=== PATIENT | male | born 1975 | race Caucasian/White ===

== ENCOUNTER 2019-01-16 22:38 | Inpatient (IN) ==
[2019-01-16] MEDS ORDERED: 0.9 % Sodium Chloride 1,000 ML IVC ONE (22:46)
[2019-01-16] MEDS ORDERED: Hyoscyamine SL 0.125 MG TAB.SUBL SL STA (22:46)
[2019-01-16] MEDS ORDERED: *HR* LORazepam 1 MG TABLET PO ONE (23:12)
[2019-01-16 23:26] LABS: Basophils % 0.2 %; Eosinophils # 0.2 K/mcL (0.0-0.6); Eosinophils % 1.1 %; Hematocrit 42.7 % (37.5-50.1); Hemoglobin 14.3 g/dL (12.9-16.9); Immature Granulocytes % 0.4 % (0-4); Lymphocytes % 13.2 %; Mean Corpuscular HGB Conc 33.5 g/dL (31.6-35.5); Mean Corpuscular Hemoglobin 31.4 pg (28.0-33.3); Mean Corpuscular Volume 93.6 fL (83.0-100.0); Mean Platelet Volume 9.7 fL (9.4-12.4); Monocytes # 1.1 K/mcL (0.0-1.3); Monocytes % 7.5 %; Neutrophils # 11.4 K/mcL (1.6-8.9); Platelet Count 209 K/mcL (140-400); Red Blood Count 4.56 M/mcL (4.19-5.50); Segmented Neutrophils % 77.6 %
--- NOTE | 2019-01-16 23:48 | Emergency Department Note ---
Disposition Clinical Impression: Elevated troponin Acute pulmonary embolism with acute cor pulmonale Qualifiers: Pulmonary embolism type: unspecified Qualified Code(s): I26.09 - Disposition: Admitted As Inpatient Condition: Fair Time of Disposition: 04:00 General Adult HPI - General Chief complaint: ED Chest Pain Stated complaint: Chest Pain Time Seen by Provider: 01/16/19 22:45 Source: EMS Mode of arrival: ambulatory Limitations: no limitations Nursing Notes Reviewed: Yes Vital Signs Reviewed: Yes - History of Present Illness HPI Narrative: 43-year-old MRDD patient presents to the emergency department complaining of abdominal and chest pain. They said it started earlier today this said that he just says he hurts he has not vomited has not had any fevers he has no shortness of breath. Patient is complaining of generalized abdominal pain generalized chest pain. It is difficult to get further history from the patient due to his MRDD. They say there is been no fevers no changes in urination no changes in bowel movements according to staff. Otherwise has no other complaints at this time. Pain Scale: 0 - Related Data Home Medications Medication Instructions Recorded Confirmed Atorvastatin Calcium [Lipitor] 20 mg PO HS 01/17/19 01/17/19 Benztropine [Cogentin] 0.5 mg PO BID 01/17/19 01/17/19 Buspirone HCl [Buspar] 15 mg PO TID 01/17/19 01/17/19 Cholecalciferol (D-3) [Vitamin D] 2,000 unit PO DAILY 01/17/19 01/17/19 Dextran 70/Hypromellose 1 drop BOTH EYES BID 01/17/19 01/17/19 [Artificial Tears] Docusate [Colace] 200 mg PO BID 01/17/19 01/17/19 Escitalopram [Lexapro] 20 mg PO DAILY 01/17/19 01/17/19 LORazepam [Ativan] 0.5 mg PO TID 01/17/19 01/17/19 Lisinopril [Zestril] 10 mg PO DAILY 01/17/19 01/17/19 Loratadine [Allergy Relief] 10 mg PO DAILY 01/17/19 01/17/19 Lurasidone HCl [Latuda] 80 mg PO DAILY 01/17/19 01/17/19 Montelukast [Singulair] 10 mg PO DAILY 01/17/19 01/17/19 Multivit,Th Iron,Other Min 1 each PO DAILY 01/17/19 01/17/19 [Therems-M] Naltrexone HCl 50 mg PO BID 01/17/19 01/17/19 Oxybutynin Chloride [Ditropan Xl] 10 mg PO DAILY 01/17/19 01/17/19 Topiramate [Topamax] 100 mg PO BID 01/17/19 01/17/19 carBAMazepine [Tegretol] 200 mg PO Q8HR 01/17/19 01/17/19 Previous Rx's Medication Instructions Recorded Heparin 2,000 unit IVP Q6H PRN vial 01/17/19 Heparin 4,000 unit IVP Q6HR PRN vial 01/17/19 Allergies Allergy/AdvReac Type Severity Reaction Status Date / Time haloperidol Allergy Rash Verified 01/30/17 19:42 Review of Systems: As Per HPI Limitations: ROS unobtainable due to patients medical condition Past Medical History - Past Medical History Attestation: Yes The following information was validated with the patient. Source: unable to obtain Medical history: Reports: hyperlipidemia Psychiatric history: Reports: other - Social History Smoking Status: Never smoker Smokeless Tobacco Status: No Alcohol use: Reports: none Drug use: Reports: none Physical Exam - General Limitations: no limitations General appearance: alert - Head Head exam: atraumatic, normocephalic, normal inspection - Eye Eye exam: Present: normal appearance, PERRL, EOMI - ENT ENT exam: normal exam, normal oropharynx, mucous membranes moist - Neck Neck exam: Present: normal inspection, full ROM, trachea midline - Chest Chest inspection: Present: normal inspection, symmetric chest wall rise - Respiratory Respiratory exam: Present: normal lung sounds bilaterally - Cardiovascular Cardiovascular exam: Present: regular rate, normal rhythm, normal heart sounds - Abdominal Exam Abdominal exam: Present: soft, tenderness. Absent: distention, guarding, rebound, rigidity Abdominal tenderness: Present: diffuse, mild - Extremities Exam Extremities exam: Present: normal inspection, full ROM. Absent: tenderness, pedal edema - Back Exam Back exam: Present: normal inspection, full ROM. Absent: tenderness - Neurological Exam Neurological exam: Present: alert - Skin Skin exam: Present: warm, dry, intact, normal color Course Course Narrative: We will get basic labs including CBC BMP troponin lipase and lactate. We will also get urinalysis. We will get chest x-ray EKG as well as CT abdomen and pelvis without contrast to look for any pathology. Patient given IV fluids and analgesia. Disposition pending results - Reevaluation(s) Reevaluation #1: Patient's troponin came back as 0.38. I did send pictures of the patient's EKG to the on-call salesperson household appliances Dr. Day. He reviewed on and recommended us to further evaluation this time and to trend troponins every 2-3 hours. Said patient did not meet STEMI criteria at this time. We did add on a CT angiogram of the chest rule out pulmonary embolism. Aspirin is given. Time: 01:08 Reevaluation #2: Repeat troponin ordered. We will start patient on low-dose heparin CT of the chest is still pending as well as the abdomen. Time: 01:43 Vital Signs Temperature 97.9 F 01/16/19 22:43 Pulse Rate 113 01/16/19 22:43 Respiratory Rate 20 01/16/19 22:43 Blood Pressure 139/92 01/16/19 22:43 O2 Sat by Pulse Oximetry 94 01/16/19 22:43 Temperature 97.9 F 01/16/19 22:43 Pulse Rate 93 01/17/19 05:40 Respiratory Rate 17 01/17/19 05:40 Blood Pressure 118/84 01/17/19 05:40 O2 Sat by Pulse Oximetry 94 01/17/19 05:40 Oxygen Delivery Oxygen Delivery Room Air Medical Decision Making - MDM Narrative Medical decision making narrative: 43-year-old male history of MRDD presented to the emergency department complaining of chest and abdominal pain. He was also short of breath. He was hypoxic at 92%. It is difficult to get a full history from the patient due to the MRDD. Due to this we did a broad workup patient did come back with an elevated troponin of 0.36. He did have mild leukocytosis. He had no acute EKG changes. With the elevation in troponin we will there is some other source but decided to give patient aspirin as well as start him on low-dose heparin. We started him on a low-dose heparin we sent him over to CAT scan be a CT angiogram of the chest. This came back with bilateral pulmonary embolisms with right heart strain there is no sign of ischemia. Or infarcts. He also had a CT of the abdomen and pelvis had no acute findings as well. Once we found out patient had a pulmonary embolism I changes patient's heparin dose to be full dose so he received a full bolus and then was started on the drip rather than low-dose ACS protocol. I did speak with cardiology who recommended looking further into the PE and he believes the troponin is secondary to the right heart strain. Patient was stable during his entire time there is no change in vital signs no hypotension he was mildly hypoxic at 92% but never got below 90%. I admitted the patient to the hospitalist service. I spoke with Dr. Maria due to met the patient to their service. Patient was admitted in stable condition. Chest X-Ray 01/16/19 22:45 IMPRESSION: Pulmonary vascular congestion. Correlate with clinical evidence of pulmonary edema. New prominence of the right hilum. Though that could be secondary to pulmonary arterial enlargement in the setting of pulmonary hypertension, a hilar mass remains in the differential. Consequently, further evaluation with chest CT is recommended, preferably with intravenous contrast. D/ / Vince Huber MD / Vince Huber MD Interpreting Provider: Vince Huber MD Abdomen/Pelvis CT 01/17/19 00:05 IMPRESSION: Motion limited. No acute intra-abdominal abnormality D/ / Brandon Rice MD / Brandon Rice MD Interpreting Provider: Brandon Rice MD Chest CTA 01/17/19 00:20 IMPRESSION: Motion artifacts. Acute pulmonary emboli in the distal aspect of the bilateral main pulmonary arteries extending into multiple bilateral segmental and subsegmental pulmonary arteries, with heavy embolic load and likely right heart strain. No definite pulmonary infarction. Critical results were reported to Dr. Atkinson at 3 a.m. on January 17, 2019 D/ / Sumit Gimenez MD / Sumit Gimenez MD Interpreting Provider: Sumit Gimenez MD - Medical Records Medical records reviewed: Yes I reviewed the patient's medical records. - Lab Data Lab results reviewed: Yes I reviewed the patient's lab results. Result diagrams: 01/17/19 02:12 01/16/19 23:15 Lab Results 01/16/19 01/16/19 01/16/19 Range/Units 23:15 23:15 23:15 WBC 14.8 H (4.3-11.1) K/mcL RBC 4.56 (4.19-5.50) M/mcL Hgb 14.3 (12.9-16.9) g/dL Hct 42.7 (37.5-50.1) % MCV 93.6 (83.0-100.0) fL MCH 31.4 (28.0-33.3) pg MCHC 33.5 (31.6-35.5) g/dL RDW 13.0 (11.5-14.5) % Plt Count 209 (140-400) K/mcL MPV 9.7 (9.4-12.4) fL Immature Gran % 0.4 (0-4) % Seg Neutrophils % 77.6 % Lymphocytes % 13.2 % Monocytes % 7.5 % Eosinophils % 1.1 % Basophils % 0.2 % Neutrophils # 11.4 H (1.6-8.9) K/mcL Lymphocytes # 2.0 (0.6-4.6) K/mcL Monocytes # 1.1 (0.0-1.3) K/mcL Eosinophils # 0.2 (0.0-0.6) K/mcL Basophils # 0.0 (0.0-0.2) K/mcL PT (9.4-12.1) Seconds INR Heparin Anti-Xa, Unfract (0.30-0.70) IU/mL Sodium 135 L (136-145) mEq/L Potassium 4.4 (3.5-5.1) mEq/L Chloride 106 (98-107) mEq/L Carbon Dioxide 24 (23-29) mEq/L BUN 13 (6-20) mg/dL Creatinine 0.68 L (0.70-1.30) mg/dL Est GFR ( Amer) > 60 (> 60) Est GFR (Non-Af Amer) > 60 (> 60) BUN/Creatinine Ratio 19 (6-26) Glucose 144 H (70-105) mg/dL Calculated Osmolality 283 (280-300) Lactic Acid 1.4 (0.5-2.2) mmol/L Calcium 9.2 (8.6-10.3) mg/dL Total Bilirubin 0.3 (0.3-1.0) mg/dL AST 23 (13-39) Units/L ALT 13 (7-52) Units/L Alkaline Phosphatase 111 H (34-104) Units/L Troponin I 0.38 H* (< 0.04) ng/mL Serum Total Protein 7.7 (6.4-8.9) g/dL Albumin 3.9 (3.5-5.7) g/dL Globulin 3.8 H (2.4-3.5) g/dL Albumin/Globulin Ratio 1.0 L (1.1-2.2) Lipase 21 (11-82) Units/L Urine Color (Yellow) Urine Clarity (Clear) Urine pH (5.0-8.0) pH Units Ur Specific Addison (1.010-1.025) Urine Protein (Neg-Trace) mg/dL Urine Glucose (UA) (Normal) mg/dL Urine Ketones (Negative) mg/dL Urine Blood (Negative) Urine Nitrite (Negative) Urine Bilirubin (Negative) Urine Urobilinogen (Normal) mg/dL Ur Leukocyte Esterase (Negative) Ur Culture Indicated? (NO) 01/17/19 01/17/19 01/17/19 Range/Units 01:46 02:12 02:12 WBC 13.0 H (4.3-11.1) K/mcL RBC 4.18 L (4.19-5.50) M/mcL Hgb 13.2 (12.9-16.9) g/dL Hct 39.3 (37.5-50.1) % MCV 94.0 (83.0-100.0) fL MCH 31.6 (28.0-33.3) pg MCHC 33.6 (31.6-35.5) g/dL RDW 13.2 (11.5-14.5) % Plt Count 208 (140-400) K/mcL MPV 10.3 (9.4-12.4) fL Immature Gran % (0-4) % Seg Neutrophils % % Lymphocytes % % Monocytes % % Eosinophils % % Basophils % % Neutrophils # (1.6-8.9) K/mcL Lymphocytes # (0.6-4.6) K/mcL Monocytes # (0.0-1.3) K/mcL Eosinophils # (0.0-0.6) K/mcL Basophils # (0.0-0.2) K/mcL PT (9.4-12.1) Seconds INR Heparin Anti-Xa, Unfract (0.30-0.70) IU/mL Sodium (136-145) mEq/L Potassium (3.5-5.1) mEq/L Chloride (98-107) mEq/L Carbon Dioxide (23-29) mEq/L BUN (6-20) mg/dL Creatinine (0.70-1.30) mg/dL Est GFR ( Amer) (> 60) Est GFR (Non-Af Amer) (> 60) BUN/Creatinine Ratio (6-26) Glucose (70-105) mg/dL Calculated Osmolality (280-300) Lactic Acid (0.5-2.2) mmol/L Calcium (8.6-10.3) mg/dL Total Bilirubin (0.3-1.0) mg/dL AST (13-39) Units/L ALT (7-52) Units/L Alkaline Phosphatase (34-104) Units/L Troponin I 0.30 H* (< 0.04) ng/mL Serum Total Protein (6.4-8.9) g/dL Albumin (3.5-5.7) g/dL Globulin (2.4-3.5) g/dL Albumin/Globulin Ratio (1.1-2.2) Lipase (11-82) Units/L Urine Color Yellow (Yellow) Urine Clarity Clear (Clear) Urine pH 8.0 (5.0-8.0) pH Units Ur Specific Addison 1.015 (1.010-1.025) Urine Protein Negative (Neg-Trace) mg/dL Urine Glucose (UA) Normal (Normal) mg/dL Urine Ketones Negative (Negative) mg/dL Urine Blood Negative (Negative) Urine Nitrite Negative (Negative) Urine Bilirubin Negative (Negative) Urine Urobilinogen Normal (Normal) mg/dL Ur Leukocyte Esterase Negative (Negative) Ur Culture Indicated? NO (NO) 01/17/19 Range/Units 02:12 WBC (4.3-11.1) K/mcL RBC (4.19-5.50) M/mcL Hgb (12.9-16.9) g/dL Hct (37.5-50.1) % MCV (83.0-100.0) fL MCH (28.0-33.3) pg MCHC (31.6-35.5) g/dL RDW (11.5-14.5) % Plt Count (140-400) K/mcL MPV (9.4-12.4) fL Immature Gran % (0-4) % Seg Neutrophils % % Lymphocytes % % Monocytes % % Eosinophils % % Basophils % % Neutrophils # (1.6-8.9) K/mcL Lymphocytes # (0.6-4.6) K/mcL Monocytes # (0.0-1.3) K/mcL Eosinophils # (0.0-0.6) K/mcL Basophils # (0.0-0.2) K/mcL PT 11.3 (9.4-12.1) Seconds INR 1.0 Heparin Anti-Xa, Unfract 0.01 L (0.30-0.70) IU/mL Sodium (136-145) mEq/L Potassium (3.5-5.1) mEq/L Chloride (98-107) mEq/L Carbon Dioxide (23-29) mEq/L BUN (6-20) mg/dL Creatinine (0.70-1.30) mg/dL Est GFR ( Amer) (> 60) Est GFR (Non-Af Amer) (> 60) BUN/Creatinine Ratio (6-26) Glucose (70-105) mg/dL Calculated Osmolality (280-300) Lactic Acid (0.5-2.2) mmol/L Calcium (8.6-10.3) mg/dL Total Bilirubin (0.3-1.0) mg/dL AST (13-39) Units/L ALT (7-52) Units/L Alkaline Phosphatase (34-104) Units/L Troponin I (< 0.04) ng/mL Serum Total Protein (6.4-8.9) g/dL Albumin (3.5-5.7) g/dL Globulin (2.4-3.5) g/dL Albumin/Globulin Ratio (1.1-2.2) Lipase (11-82) Units/L Urine Color (Yellow) Urine Clarity (Clear) Urine pH (5.0-8.0) pH Units Ur Specific Addison (1.010-1.025) Urine Protein (Neg-Trace) mg/dL Urine Glucose (UA) (Normal) mg/dL Urine Ketones (Negative) mg/dL Urine Blood (Negative) Urine Nitrite (Negative) Urine Bilirubin (Negative) Urine Urobilinogen (Normal) mg/dL Ur Leukocyte Esterase (Negative) Ur Culture Indicated? (NO) - Radiology Data Radiology results reviewed: Yes I reviewed the patient's radiology results. - EKG Data EKG #1 EKG attestation: Yes I reviewed and interpreted this EKG. EKG results narrative: EKG done at 2255 review myself shows sinus tach at a rate of 112, MI interval 170, QRS 122, QTC 475. There is no acute ST changes no acute T-wave changes no other signs of ischemia. No signs of hypertrophy, heart strain, there is a right bundle branch block no other blocks. No WPW/Brugada/HOCM. Compared with old EKG done 08/21/13 no acute changes. EKG #2 has no acute changes based on the first one. Done at 00 30 review myself and attending shows sinus tachycardia at a rate of 107, MI interval 176, QRS 117, QTC 473. Is no acute ST changes no acute T-wave changes no other signs of ischemia. Unchanged when compared with old one.
[2019-01-16 23:59] LABS: Alanine Aminotransferase 13 Units/L (7-52); Albumin 3.9 g/dL (3.5-5.7); Alkaline Phosphatase 111 Units/L (34-104); Aspartate Amino Transferase 23 Units/L (13-39); BUN/Creatinine Ratio 19 (6-26); Bilirubin,Total 0.3 mg/dL (0.3-1.0); Blood Urea Nitrogen 13 mg/dL (6-20); Calcium 9.2 mg/dL (8.6-10.3); Carbon Dioxide 24 mEq/L (23-29); Chloride 106 mEq/L (98-107); Globulin 3.8 g/dL (2.4-3.5); Glucose 144 mg/dL (70-105); Lipase 21 Units/L (11-82); Osmolality,Calculated 283 (280-300); Potassium 4.4 mEq/L (3.5-5.1); Sodium 135 mEq/L (136-145); Total Protein 7.7 g/dL (6.4-8.9); Troponin I 0.38 ng/mL (< 0.04); eGFR For Non-African Americans > 60 (> 60)
[2019-01-17] MEDS ORDERED: Isovue-370 500 ML BOTTLE IVP ONE (00:20)
[2019-01-17] MEDS ORDERED: Aspirin 81 MG TAB.CHEW PO ONE (01:09)
[2019-01-17] MEDS ORDERED: *HR* LORazepam 2 MG/ML VIAL IVP STA (01:16)
--- NOTE | 2019-01-17 01:24 | Emergency Department Note ---
Disposition Clinical Impression: Elevated troponin Acute pulmonary embolism with acute cor pulmonale Qualifiers: Pulmonary embolism type: unspecified Qualified Code(s): I26.09 - Disposition: Admitted As Inpatient Condition: Fair General Adult HPI - General Chief complaint: ED Chest Pain Stated complaint: Chest Pain Time Seen by Provider: 01/16/19 22:45 Source: EMS Mode of arrival: ambulatory Limitations: no limitations Nursing Notes Reviewed: Yes Vital Signs Reviewed: Yes - History of Present Illness Pain Scale: 0 - Related Data Home Medications Medication Instructions Recorded Confirmed Atorvastatin Calcium [Lipitor] 20 mg PO HS 01/17/19 01/17/19 Benztropine [Cogentin] 0.5 mg PO BID 01/17/19 01/17/19 Buspirone HCl [Buspar] 15 mg PO TID 01/17/19 01/17/19 Cholecalciferol (D-3) [Vitamin D] 2,000 unit PO DAILY 01/17/19 01/17/19 Dextran 70/Hypromellose 1 drop BOTH EYES BID 01/17/19 01/17/19 [Artificial Tears] Docusate [Colace] 200 mg PO BID 01/17/19 01/17/19 Escitalopram [Lexapro] 20 mg PO DAILY 01/17/19 01/17/19 LORazepam [Ativan] 0.5 mg PO TID 01/17/19 01/17/19 Lisinopril [Zestril] 10 mg PO DAILY 01/17/19 01/17/19 Loratadine [Allergy Relief] 10 mg PO DAILY 01/17/19 01/17/19 Lurasidone HCl [Latuda] 80 mg PO DAILY 01/17/19 01/17/19 Montelukast [Singulair] 10 mg PO DAILY 01/17/19 01/17/19 Multivit,Th Iron,Other Min 1 each PO DAILY 01/17/19 01/17/19 [Therems-M] Naltrexone HCl 50 mg PO BID 01/17/19 01/17/19 Oxybutynin Chloride [Ditropan Xl] 10 mg PO DAILY 01/17/19 01/17/19 Topiramate [Topamax] 100 mg PO BID 01/17/19 01/17/19 carBAMazepine [Tegretol] 200 mg PO Q8HR 01/17/19 01/17/19 Previous Rx's Medication Instructions Recorded Heparin 2,000 unit IVP Q6H PRN vial 01/17/19 Heparin 4,000 unit IVP Q6HR PRN vial 01/17/19 Allergies Allergy/AdvReac Type Severity Reaction Status Date / Time haloperidol Allergy Rash Verified 01/30/17 19:42 Past Medical History - Past Medical History Medical history: Reports: hyperlipidemia Psychiatric history: Reports: other - Social History Smoking Status: Never smoker Smokeless Tobacco Status: No Alcohol use: Reports: none Drug use: Reports: none Physical Exam - General Limitations: no limitations General appearance: alert Course Vital Signs Temperature 97.9 F 01/16/19 22:43 Pulse Rate 113 01/16/19 22:43 Respiratory Rate 20 01/16/19 22:43 Blood Pressure 139/92 01/16/19 22:43 O2 Sat by Pulse Oximetry 94 01/16/19 22:43 Temperature 97.9 F 01/16/19 22:43 Pulse Rate 93 01/17/19 05:40 Respiratory Rate 17 01/17/19 05:40 Blood Pressure 118/84 01/17/19 05:40 O2 Sat by Pulse Oximetry 94 01/17/19 05:40 Oxygen Delivery Oxygen Delivery Room Air Medical Decision Making - Medical Records Medical records reviewed: Yes I reviewed the patient's medical records. - Lab Data Lab results reviewed: Yes I reviewed the patient's lab results. Result diagrams: 01/17/19 02:12 01/16/19 23:15 Lab Results 01/16/19 01/16/19 01/16/19 Range/Units 23:15 23:15 23:15 WBC 14.8 H (4.3-11.1) K/mcL RBC 4.56 (4.19-5.50) M/mcL Hgb 14.3 (12.9-16.9) g/dL Hct 42.7 (37.5-50.1) % MCV 93.6 (83.0-100.0) fL MCH 31.4 (28.0-33.3) pg MCHC 33.5 (31.6-35.5) g/dL RDW 13.0 (11.5-14.5) % Plt Count 209 (140-400) K/mcL MPV 9.7 (9.4-12.4) fL Immature Gran % 0.4 (0-4) % Seg Neutrophils % 77.6 % Lymphocytes % 13.2 % Monocytes % 7.5 % Eosinophils % 1.1 % Basophils % 0.2 % Neutrophils # 11.4 H (1.6-8.9) K/mcL Lymphocytes # 2.0 (0.6-4.6) K/mcL Monocytes # 1.1 (0.0-1.3) K/mcL Eosinophils # 0.2 (0.0-0.6) K/mcL Basophils # 0.0 (0.0-0.2) K/mcL PT (9.4-12.1) Seconds INR Heparin Anti-Xa, Unfract (0.30-0.70) IU/mL Sodium 135 L (136-145) mEq/L Potassium 4.4 (3.5-5.1) mEq/L Chloride 106 (98-107) mEq/L Carbon Dioxide 24 (23-29) mEq/L BUN 13 (6-20) mg/dL Creatinine 0.68 L (0.70-1.30) mg/dL Est GFR ( Amer) > 60 (> 60) Est GFR (Non-Af Amer) > 60 (> 60) BUN/Creatinine Ratio 19 (6-26) Glucose 144 H (70-105) mg/dL Calculated Osmolality 283 (280-300) Lactic Acid 1.4 (0.5-2.2) mmol/L Calcium 9.2 (8.6-10.3) mg/dL Total Bilirubin 0.3 (0.3-1.0) mg/dL AST 23 (13-39) Units/L ALT 13 (7-52) Units/L Alkaline Phosphatase 111 H (34-104) Units/L Troponin I 0.38 H* (< 0.04) ng/mL Serum Total Protein 7.7 (6.4-8.9) g/dL Albumin 3.9 (3.5-5.7) g/dL Globulin 3.8 H (2.4-3.5) g/dL Albumin/Globulin Ratio 1.0 L (1.1-2.2) Lipase 21 (11-82) Units/L Urine Color (Yellow) Urine Clarity (Clear) Urine pH (5.0-8.0) pH Units Ur Specific [place] (1.010-1.025) Urine Protein (Neg-Trace) mg/dL Urine Glucose (UA) (Normal) mg/dL Urine Ketones (Negative) mg/dL Urine Blood (Negative) Urine Nitrite (Negative) Urine Bilirubin (Negative) Urine Urobilinogen (Normal) mg/dL Ur Leukocyte Esterase (Negative) Ur Culture Indicated? (NO) 01/17/19 01/17/19 01/17/19 Range/Units 01:46 02:12 02:12 WBC 13.0 H (4.3-11.1) K/mcL RBC 4.18 L (4.19-5.50) M/mcL Hgb 13.2 (12.9-16.9) g/dL Hct 39.3 (37.5-50.1) % MCV 94.0 (83.0-100.0) fL MCH 31.6 (28.0-33.3) pg MCHC 33.6 (31.6-35.5) g/dL RDW 13.2 (11.5-14.5) % Plt Count 208 (140-400) K/mcL MPV 10.3 (9.4-12.4) fL Immature Gran % (0-4) % Seg Neutrophils % % Lymphocytes % % Monocytes % % Eosinophils % % Basophils % % Neutrophils # (1.6-8.9) K/mcL Lymphocytes # (0.6-4.6) K/mcL Monocytes # (0.0-1.3) K/mcL Eosinophils # (0.0-0.6) K/mcL Basophils # (0.0-0.2) K/mcL PT (9.4-12.1) Seconds INR Heparin Anti-Xa, Unfract (0.30-0.70) IU/mL Sodium (136-145) mEq/L Potassium (3.5-5.1) mEq/L Chloride (98-107) mEq/L Carbon Dioxide (23-29) mEq/L BUN (6-20) mg/dL Creatinine (0.70-1.30) mg/dL Est GFR ( Amer) (> 60) Est GFR (Non-Af Amer) (> 60) BUN/Creatinine Ratio (6-26) Glucose (70-105) mg/dL Calculated Osmolality (280-300) Lactic Acid (0.5-2.2) mmol/L Calcium (8.6-10.3) mg/dL Total Bilirubin (0.3-1.0) mg/dL AST (13-39) Units/L ALT (7-52) Units/L Alkaline Phosphatase (34-104) Units/L Troponin I 0.30 H* (< 0.04) ng/mL Serum Total Protein (6.4-8.9) g/dL Albumin (3.5-5.7) g/dL Globulin (2.4-3.5) g/dL Albumin/Globulin Ratio (1.1-2.2) Lipase (11-82) Units/L Urine Color Yellow (Yellow) Urine Clarity Clear (Clear) Urine pH 8.0 (5.0-8.0) pH Units Ur Specific [place] 1.015 (1.010-1.025) Urine Protein Negative (Neg-Trace) mg/dL Urine Glucose (UA) Normal (Normal) mg/dL Urine Ketones Negative (Negative) mg/dL Urine Blood Negative (Negative) Urine Nitrite Negative (Negative) Urine Bilirubin Negative (Negative) Urine Urobilinogen Normal (Normal) mg/dL Ur Leukocyte Esterase Negative (Negative) Ur Culture Indicated? NO (NO) 01/17/19 Range/Units 02:12 WBC (4.3-11.1) K/mcL RBC (4.19-5.50) M/mcL Hgb (12.9-16.9) g/dL Hct (37.5-50.1) % MCV (83.0-100.0) fL MCH (28.0-33.3) pg MCHC (31.6-35.5) g/dL RDW (11.5-14.5) % Plt Count (140-400) K/mcL MPV (9.4-12.4) fL Immature Gran % (0-4) % Seg Neutrophils % % Lymphocytes % % Monocytes % % Eosinophils % % Basophils % % Neutrophils # (1.6-8.9) K/mcL Lymphocytes # (0.6-4.6) K/mcL Monocytes # (0.0-1.3) K/mcL Eosinophils # (0.0-0.6) K/mcL Basophils # (0.0-0.2) K/mcL PT 11.3 (9.4-12.1) Seconds INR 1.0 Heparin Anti-Xa, Unfract 0.01 L (0.30-0.70) IU/mL Sodium (136-145) mEq/L Potassium (3.5-5.1) mEq/L Chloride (98-107) mEq/L Carbon Dioxide (23-29) mEq/L BUN (6-20) mg/dL Creatinine (0.70-1.30) mg/dL Est GFR ( Amer) (> 60) Est GFR (Non-Af Amer) (> 60) BUN/Creatinine Ratio (6-26) Glucose (70-105) mg/dL Calculated Osmolality (280-300) Lactic Acid (0.5-2.2) mmol/L Calcium (8.6-10.3) mg/dL Total Bilirubin (0.3-1.0) mg/dL AST (13-39) Units/L ALT (7-52) Units/L Alkaline Phosphatase (34-104) Units/L Troponin I (< 0.04) ng/mL Serum Total Protein (6.4-8.9) g/dL Albumin (3.5-5.7) g/dL Globulin (2.4-3.5) g/dL Albumin/Globulin Ratio (1.1-2.2) Lipase (11-82) Units/L Urine Color (Yellow) Urine Clarity (Clear) Urine pH (5.0-8.0) pH Units Ur Specific [place] (1.010-1.025) Urine Protein (Neg-Trace) mg/dL Urine Glucose (UA) (Normal) mg/dL Urine Ketones (Negative) mg/dL Urine Blood (Negative) Urine Nitrite (Negative) Urine Bilirubin (Negative) Urine Urobilinogen (Normal) mg/dL Ur Leukocyte Esterase (Negative) Ur Culture Indicated? (NO) - Radiology Data Radiology results reviewed: Yes I reviewed the patient's radiology results. Chest X-Ray 01/16/19 22:45 IMPRESSION: Pulmonary vascular congestion. Correlate with clinical evidence of pulmonary edema. New prominence of the right hilum. Though that could be secondary to pulmonary arterial enlargement in the setting of pulmonary hypertension, a hilar mass remains in the differential. Consequently, further evaluation with chest CT is recommended, preferably with intravenous contrast. D/ / Vince Huber MD / Vince Huber MD Interpreting Provider: Vince Huber MD Abdomen/Pelvis CT 01/17/19 00:05 IMPRESSION: Motion limited. No acute intra-abdominal abnormality D/ / Brandon Rice MD / Brandon Rice MD Interpreting Provider: Brandon Rice MD Chest CTA 01/17/19 00:20 IMPRESSION: Motion artifacts. Acute pulmonary emboli in the distal aspect of the bilateral main pulmonary arteries extending into multiple bilateral segmental and subsegmental pulmonary arteries, with heavy embolic load and likely right heart strain. No definite pulmonary infarction. Critical results were reported to Dr. Atkinson at 3 a.m. on January 17, 2019 D/ / Sumit Gimenez MD / Sumit Gimenez MD Interpreting Provider: Sumit Gimenez MD Echocardiogram 01/17/19 08:32 Impressions: Technically sub-optimal due to clinical status. LVEF 60%. Indeterminate diastolic function. Definity echo contrast was used. Right ventricular structure is not optimally visualized. Grossly it appears dilated and hypokinetic. There is flattening of the septum consistent with pressure overload. Mild-moderate tricuspid regurgitation. Moderate pulmonary hypertension. Left Ventricular Wall Motion: Rest Echo Findings The apex, apical inferior, mid inferior, basal inferior, apical anterior, mid anterior, basal anterior, apical lateral and mid anterior lateral hamlin were not visualized. All other wall segments showed normal motion. Findings: Study Quality * Technically sub-optimal due to clinical status. ECG Findings * Normal sinus rhythm. Left Ventricle * LVEF 60%. * Normal LV chamber size, wall thickness and function. * Indeterminate diastolic function. * Definity echo contrast was used. Right Ventricle * Right ventricular structure is not well visualized. Grossly it appears dilated and hypokinetic. Left Atrium * Left atrium is not well visualized. Right Atrium * Right atrium is not well visualized. Mitral Valve * Mitral valve not well visualized in all windows. * Suboptimal Doppler signal. Aortic Valve * No aortic regurgitation. * Trileaflet aortic valve. * No aortic stenosis. Tricuspid Valve * Tricuspid valve not well visualized. * Mild-moderate tricuspid regurgitation. * Estimated RA pressure is 8 mmHg. * Estimated RVSP is 51 mmHg. * Moderate pulmonary hypertension. Pulmonic Valve * Pulmonic valve is not well visualized. * No pulmonic stenosis. * No pulmonic regurgitation. Pulmonary Artery * Pulmonary artery not well visualized. Aorta * Normally sized aortic root. Pericardium * There is no pericardial effusion present. Interatrial Septum * Interatrial septum not well evaluated. IVC * The IVC is dilated. * > 50% respiratory change - EKG Data EKG #1 EKG attestation: Yes I reviewed and interpreted this EKG. EKG results narrative: Repeat EKG at 00:30 shows sinus tachycardia with ventricular rate of 107. No significant change from initial EKG. No ST segment elevation or depression. No ectopy. EKG #2 EKG attestation: Yes I reviewed and interpreted this EKG. EKG results narrative: Repeat EKG at 00:30 shows sinus tachycardia with ventricular rate of 107. No significant change from initial EKG. No ST segment elevation or depression. No ectopy. Critical Care Time Critical Care Time: Yes Total Critical Care Time: 45 Attestation: Critical care performed: Time is exclusive of separately billable procedures. Time includes: direct patient care, patient reassessment, coordination of patient care, interpretation of data (laboratory data, radiology data, and respiratory data), review of patient's medical records, medical consultation and documentation of patient care. Procedures included in critical care time: Procedures excluded from critical care time: Attestation Statement - Attestation Attestation: I, Maicol Gomez MD, personally evaluated this patient and discussed their management with the resident physician. I reviewed the resident's note and agree with the documented findings, medical decision making, and plan of care. 43-year-old male presents to the emergency department by EMS. Patient has MRDD and is from a custodial. Patient really unable to provide any significant history or review of systems. He pretty much answers yes to every question we ask him. A forest patrolman later arrived and reports that his symptoms started about noon today. They state that he has been pale and clammy and less active than usual. Just not acting himself. They state he has complained of chest pain and abdominal pain. He also has appeared to be short of breath. On examination patient is a well-developed morbidly obese male in no acute distress. He is alert and somewhat cooperative. No cyanosis or diaphoresis. Breath sounds are clear and equal bilaterally. Heart regular with a mild tachycardia. Abdomen soft with present bowel sounds. No obvious tenderness on palpation. Trace pedal edema. Initial EKG shows a sinus tachycardia with rate of 112. No significant ST elevation or depression. A repeat EKG approximately 1.5 hours later is essentially unchanged and shows a sinus tach of 107. Labs reviewed. Troponin 0.38. Chest x-ray shows pulmonary vascular congestion. Dr. Atkinson discussed the patient with the hot metal charger wafer production worker, Dr. Day. He reviewed the EKG. He recommended trending the troponin every 2-3 hours. We will obtain a CTA of the chest and CT of the abdomen and pelvis and then start the patient on heparin infusion and consult the hospitalist for admission. CTA showed bilateral PE with right heart strain. Patient started on standard dose heparin infusion. Repeat Trop I decreased to 0.30. Vital signs have remained stable. The Hospitalist, Dr. Maria, was consulted and accepted admission of the patient.
[2019-01-17] MEDS ORDERED: *HR* Heparin 5,000 UNIT/ML VIAL IVP PRN ×2 (01:42)
[2019-01-17] MEDS ORDERED: *HR* Heparin 5,000 UNIT/ML VIAL IVP ONE (01:42)
[2019-01-17 01:58] LABS: Bilirubin,Urine Negative (Negative); Blood,Urine Negative (Negative); Clarity,Urine Clear (Clear); Color,Urine Yellow (Yellow); Glucose,Urine (UA) Normal (Normal); Ketones,Urine Negative (Negative); Leukocyte Esterase,Urine Negative (Negative); Nitrite,Urine Negative (Negative); Protein,Urine Negative (Neg-Trace); Specific Gravity,Urine 1.015 (1.010-1.025); Urobilinogen,Urine Normal (Normal)
[2019-01-17] MEDS ORDERED: *HR* Heparin 5,000 UNIT/ML VIAL ONE (04:34)
[2019-01-17] MEDS ORDERED: Heparin 25,000 UNIT/250 ML D5W 25,000 UNIT/250 ML IV.SOLN IVC ONE (04:34)
[2019-01-17 05:26] LABS: Heparin anti-factor XA UFH 0.01 IU/mL (0.30-0.70); Prothrombin Time 11.3 Seconds (9.4-12.1)
[2019-01-17] MEDS ORDERED: Naloxone 0.4 MG/ML INJ IVP PRN (07:25)
[2019-01-17 07:46] VITALS: BP 118/84
[2019-01-17 08:10] LABS: Hematocrit 39.3 % (37.5-50.1); Hemoglobin 13.2 g/dL (12.9-16.9); Mean Corpuscular HGB Conc 33.6 g/dL (31.6-35.5); Mean Corpuscular Hemoglobin 31.6 pg (28.0-33.3); Mean Platelet Volume 10.3 fL (9.4-12.4); Platelet Count 208 K/mcL (140-400); Red Blood Count 4.18 M/mcL (4.19-5.50); Red Cell Distribution Width 13.2 % (11.5-14.5)
--- NOTE | 2019-01-17 09:00 | Internal Med History&Physical ---
Date of Encounter: 01/17/19 Time of Encounter: 07:00 Internal Medicine - H&P: HPI Chief complaint: Shortness of breath, not acting right for one day History of present illness: Mr. Cotter is a 43 year old male with developmental delay who resides at a correction was sent for the correction for complaints of shortness of breath and "not acting right" of one day duration. History was obtained from mom at the bedside as patient has MR and just keeps asking for food. Per mom, she says patient has intermittently complained of chest pain for the last couplf of months and would have intermittent vomiting, but hasn't really been acute sick otherwise.In the last 24hrs, correction staff reported to her on the phone that he was more restless and agitated than usual and was complaining of shortness of breath, and that's why they sent him to the ER In the ER, a CTA chest was done showing acute PE with heavy embolic load. He was started on a heparin drip and he is being admitted for further management Past Med Surg Social Fam HX - Past Medical History Medical history: hyperlipidemia Psychiatric history: other - Social History Smoking Status: Never smoker Smokeless Tobacco Status: No Alcohol use: none Drug use: none Internal Medicine - H&P: Meds Albuterol Inhaler 01/30/17 [History] Ativan 01/30/17 [History] Atorvastatin 01/30/17 [History] Carbamazepine 01/30/17 [History] Ibuprofen [Motrin] 600 mg PO Q6HR PRN #20 tab 01/30/17 [Rx] Latuda 01/30/17 [History] Lexapro 01/30/17 [History] Loperamide HCl 01/30/17 [History] Luvox 01/30/17 [History] Montelukast 01/30/17 [History] diazePAM 01/30/17 [History] Allergy/AdvReac Type Severity Reaction Status Date / Time haloperidol Allergy Rash Verified 01/30/17 19:42 ROS unobtainable: due to mental status All Systems PM: A 10-system review of systems was performed and is negative for pertinent findings except as documented above in the HPI. - Constitutional Vitals: Temp Pulse Resp BP Pulse Ox 97.9 F 93 17 118/84 94 01/16/19 22:43 01/17/19 05:40 01/17/19 05:40 01/17/19 05:40 01/17/19 05:40 Exam: NAD - Head Head exam: Present: atraumatic, normocephalic - Eye Eye exam: Present: PERRL, conjuntiva pink, sclera anicteric Pupils: Present: PERRL - Neck Neck exam general surgery: Present: supple, trachea midline. Absent: lymphadenopathy - Respiratory Respiratory exam: Present: CTAB. Absent: accessory muscle use, rales, rhonchi, wheezes - Cardiovascular Cardiovascular exam: Present: RRR, +S1, +S2. Absent: diastolic murmur, gallop, rubs, systolic murmur - GI/Abdominal GI/Abdominal exam: Present: normal bowel sounds, soft, no peritoneal signs. Absent: distended, tenderness - Extremities Exam Extremities exam: Present: warm, radial pulses palpable and symmetrical. Absent : calf tenderness, cyanotic, pedal edema - Neurological Exam Neurological exam: Present: CN II-XII intact, oriented X3, no focal deficits. Absent: pronater drift, facial droop, speech deficit - Skin Skin exam: Present: dry, intact Internal Med - H&P Results - Labs CBC & Chem 7: 01/17/19 02:12 01/16/19 23:15 Labs: Short CBC 01/16/19 01/17/19 Range/Units 23:15 02:12 WBC 14.8 H 13.0 H (4.3-11.1) K/mcL Hgb 14.3 13.2 (12.9-16.9) g/dL Hct 42.7 39.3 (37.5-50.1) % Plt Count 209 208 (140-400) K/mcL Neutrophils # 11.4 H (1.6-8.9) K/mcL BMP 01/16/19 23:15 Sodium 135 L Potassium 4.4 Chloride 106 Carbon Dioxide 24 BUN 13 Creatinine 0.68 L Glucose 144 H Calcium 9.2 Cardiac Enzymes 01/16/19 01/17/19 Range/Units 23:15 02:12 Troponin I 0.38 H* 0.30 H* (< 0.04) ng/mL Liver Function 01/16/19 Range/Units 23:15 Total Bilirubin 0.3 (0.3-1.0) mg/dL AST 23 (13-39) Units/L ALT 13 (7-52) Units/L Alkaline Phosphatase 111 H (34-104) Units/L Albumin 3.9 (3.5-5.7) g/dL Urine 01/17/19 Range/Units 01:46 Urine Color Yellow (Yellow) Urine Clarity Clear (Clear) Urine pH 8.0 (5.0-8.0) pH Units Ur Specific [place] 1.015 (1.010-1.025) Urine Protein Negative (Neg-Trace) mg/dL Urine Glucose (UA) Normal (Normal) mg/dL - Impressions ITS Impressions Chest X-Ray 01/16/19 22:45 IMPRESSION: Pulmonary vascular congestion. Correlate with clinical evidence of pulmonary edema. New prominence of the right hilum. Though that could be secondary to pulmonary arterial enlargement in the setting of pulmonary hypertension, a hilar mass remains in the differential. Consequently, further evaluation with chest CT is recommended, preferably with intravenous contrast. D/ / Vince Huber MD / Vince Huber MD Interpreting Provider: Vince Huber MD Abdomen/Pelvis CT 01/17/19 00:05 IMPRESSION: Motion limited. No acute intra-abdominal abnormality D/ / Brandon Rice MD / Brandon Rice MD Interpreting Provider: Brandon Rice MD Chest CTA 01/17/19 00:20 IMPRESSION: Motion artifacts. Acute pulmonary emboli in the distal aspect of the bilateral main pulmonary arteries extending into multiple bilateral segmental and subsegmental pulmonary arteries, with heavy embolic load and likely right heart strain. No definite pulmonary infarction. Critical results were reported to Dr. Atkinson at 3 a.m. on January 17, 2019 D/ / Sumit Gimenez MD / Sumit Gimenez MD Interpreting Provider: Sumit Gimenez MD - Assessment and Plan (1) Acute pulmonary embolism with acute cor pulmonale Current Visit: Yes Status: Acute Assessment and plan: Pt presents with shortness of breath of 24 hrs duration. CTA chest done shows acute PE with heavy embolic load and right heart strain Started on a heparin drip in the ER. Will obtain echo, discussed with car diothoracic surgery DR Perez, who recommends echo to assess degree of right heart strain And based on echo read, cardiology to recommend if patient needs catheter suctioning of blood clots at a tertiary center Stat echo ordered. Cardio recs appreciated Qualifiers: Qualified Code(s): I26.09 - Other pulmonary embolism with acute cor pulmonale (2) Elevated troponin Current Visit: Yes Status: Acute Assessment and plan: Likley secondary to right heart strain from PE (3) Dyslipidemia Current Visit: Yes Status: Acute Assessment and plan: Resume home meds once reconciled (4) DVT prophylaxis Current Visit: Yes Status: Acute Assessment and plan: On heparin drip - Time Spent With Patient Total time spent is greater than 50% in coordination of care (as documented) at patient's floor/unit and/or counseling patient:
[2019-01-17] MEDS: Heparin 25,000 UNIT/250 ML D5W 25,000 UNIT/250 ML IV.SOLN IVC SCH ×3 (10:22→17:26)
[2019-01-17] MEDS ORDERED: Perflutren Lipid Microsphere 1.3 ML in 0.9 % Sodium Chloride 8.7 ML IVP ONE (11:19)
--- NOTE | 2019-01-17 13:19 | Discharge Summary ---
Date of Encounter: 01/17/19 Time of Encounter: 14:00 - Discharge Diagnosis (1) Acute pulmonary embolism with acute cor pulmonale Priority: Primary Status: Acute Assessment and Plan: 43 year old male with developmental delay who resides at a long term was sent for the long term for complaints of shortness of breath and "not acting right" of one day duration. CTA chest done shows acute PE with heavy embolic load and right heart strain. He was started on a heparin drip in the ER. 2D echo ordered. Discussed with cardiology who are of the impression that he has significant RV strain on CT and is high risk. [facility] was contacted and accepted him for transfer for possible catheter directed thrombolysis. His vitals are currently stable. HE will be transferred to [facility] on heparin drip for further management. 35 minutes was spent discharging this patient Qualifiers: Pulmonary embolism type: unspecified Qualified Code(s): I26.09 - Other pulmonary embolism with acute cor pulmonale (2) Elevated troponin Priority: Primary Status: Acute Assessment and Plan: Likley secondary to right heart strain from PE (3) Dyslipidemia Priority: Primary Status: Acute Assessment and Plan: Resume home meds once reconciled (4) DVT prophylaxis Priority: Primary Status: Acute Assessment and Plan: On heparin drip Hospital course: Mr. Cotter is a 43 year old male - Time Spent with Patient Total time spent providing and/or coordinating discharge services: - Discharge Medications Prescriptions: New Heparin 2,000 unit IVP Q6H PRN vial PRN Reason: See Comments Heparin 4,000 unit IVP Q6HR PRN vial PRN Reason: See Comments Continued Montelukast Luvox Loperamide HCl Lexapro Latuda diazePAM Carbamazepine Atorvastatin Ativan Albuterol Inhaler Ibuprofen [Motrin] 600 mg PO Q6HR PRN #20 tab PRN Reason: Pain Home Medications: Albuterol Inhaler 01/30/17 [History] Ativan 01/30/17 [History] Atorvastatin 01/30/17 [History] Carbamazepine 01/30/17 [History] Ibuprofen [Motrin] 600 mg PO Q6HR PRN #20 tab 01/30/17 [Rx] Latuda 01/30/17 [History] Lexapro 01/30/17 [History] Loperamide HCl 01/30/17 [History] Luvox 01/30/17 [History] Montelukast 01/30/17 [History] diazePAM 01/30/17 [History] Heparin 2,000 unit IVP Q6H PRN vial 01/17/19 [Rx] Heparin 4,000 unit IVP Q6HR PRN vial 01/17/19 [Rx] Allergies/Adverse Reactions: Allergy/AdvReac Type Severity Reaction Status Date / Time haloperidol Allergy Rash Verified 01/30/17 19:42 Date of admission: 01/17/19 07:25 Primary care physician: PCP NONE Consults: 01/17/19 08:31 Consult to Cardiology [CONS] Routine Comment: Consulting Provider: Cardiology [place] Reason for Consult: PE with right heart strain. Per CT surgery cardiology to determine if patient needs catheter clot suction based on echo findings Call Completed: No 01/17/19 10:06 Consult to Amphibian Crewmember [CONS] Routine Reason for SW Consult: PATIENT FROM [facility] 01/17/19 12:44 Consult to Cardiothoracic Surgery [CONS] Routine Consulting Provider: Cardiothoracic Surgery [place] Reason for Consult: ACute pE with heavy clot burden Call Completed: Yes - Constitutional Vitals: Temp Pulse Resp BP Pulse Ox 97.9 F 93 17 118/84 94 01/16/19 22:43 01/17/19 05:40 01/17/19 05:40 01/17/19 05:40 01/17/19 05:40 Exam: NAD - Head Head exam: Present: atraumatic, normocephalic - Eye Eye exam: Present: PERRL, conjuntiva pink, sclera anicteric Pupils: Present: PERRL - Neck Neck exam general surgery: Present: supple, trachea midline. Absent: lymphadenopathy - Respiratory Respiratory exam: Present: CTAB. Absent: accessory muscle use, rales, rhonchi, wheezes - Cardiovascular Cardiovascular exam: Present: RRR, +S1, +S2. Absent: diastolic murmur, gallop, rubs, systolic murmur - GI/Abdominal GI/Abdominal exam: Present: normal bowel sounds, soft, no peritoneal signs. Absent: distended, tenderness - Extremities Exam Extremities exam: Present: warm, radial pulses palpable and symmetrical. Absent: calf tenderness, cyanotic, pedal edema - Neurological Exam Neurological exam: Present: CN II-XII intact, oriented X3, no focal deficits. Absent: pronater drift, facial droop, speech deficit - Skin Skin exam: Present: dry, intact - Patient Status Disposition: Transfer Critical Access Hosp Condition: Good - Discharge Instructions Follow Up With: NONE,PCP [Primary Care Provider] -
--- NOTE | 2019-01-18 10:56 | Electrocardiograph Report ---
[address] [id number] Test Date: 2019-01-17 Pat Name: David Cotter Department: [id number] Room: 3A37 Gender: M Angular J[employer] Developer: : 1975 Requested By: Landen Atkinson Order Number: [id number] Reading MD: Makenzie Larsen Measurements Intervals [place] Rate: 107 P: 65 IA: 176 QRS: 65 QRSD: 117 T: 17 QT: 354 QTc: 473 Interpretive Statements Sinus tachycardia Probable left atrial enlargement Nonspecific intraventricular conduction delay Abnormal inferior Q waves Electronically Signed On 01-18-2019 10:54:57 EDT by Makenzie Larsen
--- NOTE | 2019-01-18 11:08 | Electrocardiograph Report ---
[address] [address] Test Date: 2019-01-16 Pat Name: David Cotter Department: EXAM16 Room: 3A37 Gender: M Security Consultant: : 1975 Requested By: Landen Atkinson Order Number: [id number] Reading MD: Makenzie Larsen Measurements Intervals [place] Rate: 112 P: 63 OR: 170 QRS: 66 QRSD: 122 T: 24 QT: 348 QTc: 475 Interpretive Statements Sinus tachycardia Probable left atrial enlargement IVCD, consider atypical RBBB Abnormal inferior Q waves Electronically Signed On 01-18-2019 11:06:57 EDT by Makenzie Larsen
== END 2019-01-17 18:40 | disposition critical access hospital (66) | DRG 176 ==
LOC: EMEROOARM 22:38 → 3ANU 22:38
PROVIDERS: ADMIT Internal Medicine; ATTEND Internal Medicine